=== PATIENT | female | born 1975 ===

== ENCOUNTER 2017-12-09 10:01 | Emergency (ER) | payer SELFPAY ==
[2017-12-09 10:33] VITALS: BP 115/77
--- NOTE | 2017-12-09 10:55 | UC ---
Abdominal Pain Female HPI - HPI Summary HPI Summary: Patient presents with 2 days progressive urinary urgency frequency dysuria. Patient took [id number] Azo this given her short-term relief. Patient denies any hematuria. Patient denies any nausea vomiting or back pain. No fevers. Patient's last UTI was approximately 2 years ago. Patient denies any concern for . Patient is breast-feeding her child was greater than 1 year. Patient without any other complaints. No vaginal discharge, itching, odor. Patient denies pelvic surgeries other than Patient's medications reviewed this visit - History of Current Complaint Chief Complaint: UCGU Stated Complaint: URINARY Time Seen by Provider: 12/09/17 10:28 Hx Last Menstrual Period: 11/12/17 Pain Intensity: 5 Allergies/Adverse Reactions: Allergies Allergy/AdvReac Type Severity Reaction Status Date / Time No Known Allergies Allergy Verified 12/09/17 10:26 Home Medications: Home Medications Azo. 2 tab PO TID PRN 12/09/17 [History] Ibuprofen TAB* [Advil TAB*] 400 mg PO Q6H PRN 12/09/17 [History Confirmed ] Sertraline* [Zoloft*] 25 mg PO DAILY 12/09/17 [History Confirmed 12/09/17] PMH/Surg Hx/FS Hx/Imm Hx Previously Healthy: Yes - Surgical History Surgical History: Yes Surgery Procedure, Year, and Place: - Family History Known Family History: Positive: Other - Social History Lives: With Family Alcohol Use: None Substance Use Type: None Smoking Status (MU): Never Smoked Tobacco Review of Systems Constitutional: Negative - Noncontributory Genitourinary: Dysuria, Frequency, Urgency All Other Systems Reviewed And Are Negative: Yes Physical Exam - Summary Physical Exam Summary: Vital Signs Reviewed: Yes A+Ox3, no distress Eyes: Conjunctiva Clear ENT: Hearing grossly normal neck: supple Respiratory: Positive: No respiratory distress, No accessory muscle use Cardiovascular: skin color reflect adequate perfusion abd soft + BS no guarding, no rebound No CVA mild suprapubic pain Musculoskeletal Exam: APARICIO x 4 without difficulty Neurological: Positive: Alert, ambulatory without difficulty Psychological: Positive: Normal Response To Family Skin: Positive: no rash, no ecchymosis Triage Information Reviewed: Yes Vital Signs: Initial Vital Signs Temp 97.9 F 12/09/17 10:29 Pulse 68 12/09/17 10:29 Resp 15 12/09/17 10:29 BP 115/77 12/09/17 10:29 Pulse Ox 100 12/09/17 10:29 Abd Pain Female Course/Dx - Course Course Of Treatment: Patient presents to urgent care reporting that for the hours of progressive dysuria, frequency, and urgency. Patient denies fevers or back pain. Patient has taken Azo so unable to test him here. We'll send urine culture. We'll presumptive retreat. Patient is both keep feeding. Patient nor child Has on allergies a we'll prescribe Keflex. Patient will also be given a prescription for Azo. Encourage fluids. Motrin Tylenol. Return precautions discussed. Patient comfortable in agreement with plan. Patient aware should receive a phone call if there is no sensitivity. - Differential Dx/Diagnosis Provider Diagnoses: UTI Discharge - Sign-Out/Discharge Documenting (check all that apply): Patient Departure All imaging exams completed and their final reports reviewed: No Studies - Discharge Plan Condition: Stable Disposition: HOME Prescriptions: Cephalexin CAP* [Keflex 500 CAP*] 500 mg PO BID #14 cap Phenazopyridine TAB* [Pyridium 100 mg TAB*] 100 mg PO TID PRN #9 tab PRN Reason: burning with urination Patient Education Materials: Urinary Tract Infection in Women (ED) Referrals: No Primary Care Phys,NOPCP [Primary Care Provider] - Additional Instructions: - stay well hydrated - drink plenty of non-alcoholic, non caffinated beverages - your urine will be further tested - if you require any changes to your treatment, we will contact you - this usually take 2 days - Take your antibiotics exactly as prescribed until gone - Take pyridium as prescribed for discomfort. This will make your urine blaze orange - this is normal - Okay to alternate ibuprofen (Advil, Motrin)600mg and Tylenol 100mg every 3 hours for pain. Take with food - Call your doctor or return with questions or concerns - Billing Disposition and Condition Condition: STABLE Disposition: Home
== END 2017-12-09 11:04 | disposition home or self-care (01) ==
LOC: UCCORT 10:01
DX: N39.0 Urinary tract infection, site not specified (principal)
CPT/HCPCS: 87086; 99202; G0463

== ENCOUNTER 2017-12-22 09:20 | Emergency (ER) | payer BC ==
[2017-12-22 09:54] VITALS: BP 127/68
--- NOTE | 2017-12-22 10:14 | UC ---
Throat Pain/Nasal Monty HPI - HPI Summary HPI Summary: Pt c/o gradual onset of nasal congestion, sinus pressure and pain X 10 days. Pt also c/o right eye redness and purulent discharge. Pt has known exposure to conjunctivitis. - History of Current Complaint Chief Complaint: UCGeneralIllness Stated Complaint: RIGHT EYE CONCERN Time Seen by Provider: 12/22/17 09:49 Hx Obtained From: Patient Hx Last Menstrual Period: 11/12/17 ?: No Onset/Duration: Gradual Onset, Lasting Days - 10, Still Present Severity: Mild Pain Intensity: 0 Cough: None Associated Signs & Symptoms: Positive: Sinus Discomfort - Epiglottits Risk Factors Epiglottis Risk Factors: Negative - Allergies/Home Medications Allergies/Adverse Reactions: Allergies Allergy/AdvReac Type Severity Reaction Status Date / Time No Known Allergies Allergy Verified 12/09/17 10:26 PMH/Surg Hx/FS Hx/Imm Hx Previously Healthy: Yes - Surgical History Surgical History: Yes Surgery Procedure, Year, and Place: - Family History Known Family History: Positive: Cardiac Disease, Other - Social History Occupation: Employed Full-time Lives: With Family Alcohol Use: None Substance Use Type: None Smoking Status (MU): Never Smoked Tobacco Have You Smoked in the Last Year: No Review of Systems Constitutional: Fatigue Skin: Negative Eyes: Drainage, Eye Redness ENT: Sinus Congestion, Sinus Pain/Tenderness Respiratory: Negative Cardiovascular: Negative Gastrointestinal: Negative Genitourinary: Negative Motor: Negative Neurovascular: Negative Musculoskeletal: Negative Neurological: Negative Psychological: Negative Is Patient Immunocompromised?: No All Other Systems Reviewed And Are Negative: Yes Physical Exam Triage Information Reviewed: Yes Appearance: Well-Appearing Vital Signs: Initial Vital Signs Temp 98 F 12/22/17 09:50 Pulse 95 12/22/17 09:50 Resp 16 12/22/17 09:50 BP 127/68 12/22/17 09:50 Pulse Ox 98 12/22/17 09:50 Vital Signs Reviewed: Yes Eye Exam: Other Eyes: Positive: Conjunctiva Inflamed ENT Exam: Other ENT: Positive: Nasal congestion, Sinus tenderness Dental Exam: Normal Neck exam: Normal Respiratory Exam: Normal Cardiovascular Exam: Normal Musculoskeletal Exam: Normal Neurological Exam: Normal Psychological Exam: Normal Skin Exam: Normal Throat Pain/Nasal Course/Dx - Differential Dx/Diagnosis Differential Diagnosis/HQI/PQRI: Sinusitis, Tonsillitis, URI Provider Diagnoses: sinusitis. conjunctivitis Discharge - Sign-Out/Discharge Documenting (check all that apply): Patient Departure All imaging exams completed and their final reports reviewed: No Studies - Discharge Plan Condition: Stable Disposition: HOME Prescriptions: Amoxicillin PO (*) [Amoxicillin 875 MG (*)] 875 mg PO Q12H #20 tab Guaifenesin/Pseudoephedrne HCl [Mucinex D ER 600-60 mg Tablet] 1 each PO Q12H # 14 tab.er.12h Polymyx/Trimethoprim OPTH* [Polytrim OPHTH*] 2 drop BOTH EYES Q8H #1 btl Patient Education Materials: Sinusitis (ED), Conjunctivitis (ED) Referrals: [facility] [Outside] - If Needed No Primary Care Phys,NOPCP [Primary Care Provider] - - Billing Disposition and Condition Condition: STABLE Disposition: Home
== END 2017-12-22 10:27 | disposition home or self-care (01) ==
LOC: UCCORT 09:20
DX: J32.9 Chronic sinusitis, unspecified (principal); H10.9 Unspecified conjunctivitis
CPT/HCPCS: 99212; G0463